=== PATIENT | male | born 1975 | race African-American/Black ===

== ENCOUNTER 2022-10-13 09:18 | Outpatient (CLI) | payer MEDICARE, OTHER | END 2022-10-13 09:19 | disposition home or self-care (01) | LOC: CSHWCC 09:18 | PROVIDERS: ATTEND Nurse Practitioner Family | DX: R60.0 Localized edema (principal); S81.802D Unspecified open wound, left lower leg, subsequent encounter; S81.801D Unspecified open wound, right lower leg, subsequent encounter | CPT/HCPCS: 29581; 97597 ==

== ENCOUNTER 2022-10-23 15:13 | Outpatient (CLI) | payer MEDICARE | END 2022-10-23 15:14 | disposition home or self-care (01) | LOC: CSHWCC 15:13 | PROVIDERS: ATTEND Nurse Practitioner Family | DX: S81.802D Unspecified open wound, left lower leg, subsequent encounter (principal); R60.0 Localized edema | CPT/HCPCS: 29581; 97597; 97598 ==

== ENCOUNTER 2022-10-27 11:05 | Outpatient (CLI) | payer MEDICARE | END 2022-10-27 11:06 | disposition home or self-care (01) | LOC: CSHWCC 11:05 | PROVIDERS: ATTEND Nurse Practitioner Family | DX: R60.0 Localized edema (principal); S81.802D Unspecified open wound, left lower leg, subsequent encounter | CPT/HCPCS: 29581; 97597 ==

== ENCOUNTER 2022-10-30 13:24 | Outpatient (CLI) | payer MEDICARE | END 2022-10-30 13:25 | disposition home or self-care (01) | LOC: CSHWCC 13:24 | PROVIDERS: ATTEND Nurse Practitioner Family | DX: R60.0 Localized edema (principal); S81.802D Unspecified open wound, left lower leg, subsequent encounter ==

== ENCOUNTER 2022-11-04 08:09 | Outpatient (CLI) | payer MEDICARE | END 2022-11-04 08:10 | disposition home or self-care (01) | LOC: CSHWCC 08:09 | PROVIDERS: ATTEND Nurse Practitioner Family | DX: R60.0 Localized edema (principal); S81.802D Unspecified open wound, left lower leg, subsequent encounter | CPT/HCPCS: 29581; 97597 ==

== ENCOUNTER 2022-11-07 08:05 | Outpatient (CLI) | payer MEDICARE | END 2022-11-07 08:06 | disposition home or self-care (01) | LOC: CSHWCC 08:05 | PROVIDERS: ATTEND Nurse Practitioner Family | DX: R60.0 Localized edema (principal); S81.802D Unspecified open wound, left lower leg, subsequent encounter; S81.801D Unspecified open wound, right lower leg, subsequent encounter | CPT/HCPCS: 29581 ==

== ENCOUNTER 2022-11-10 09:22 | Outpatient (CLI) | payer MEDICARE | END 2022-11-10 09:23 | disposition home or self-care (01) | LOC: CSHWCC 09:22 | PROVIDERS: ATTEND Nurse Practitioner Family | DX: S81.801D Unspecified open wound, right lower leg, subsequent encounter (principal); S81.802D Unspecified open wound, left lower leg, subsequent encounter; R60.0 Localized edema | CPT/HCPCS: 29581 ==

== ENCOUNTER 2022-11-13 10:24 | Outpatient (CLI) | payer MEDICARE | END 2022-11-13 10:25 | disposition home or self-care (01) | LOC: CSHWCC 10:24 | PROVIDERS: ATTEND Nurse Practitioner Family | DX: R60.0 Localized edema (principal); S81.802D Unspecified open wound, left lower leg, subsequent encounter; S81.801D Unspecified open wound, right lower leg, subsequent encounter | CPT/HCPCS: 29581 ==

== ENCOUNTER 2022-11-18 10:32 | Outpatient (CLI) | payer MEDICARE | END 2022-11-18 10:33 | disposition home or self-care (01) | LOC: CSHWCC 10:32 | PROVIDERS: ATTEND Nurse Practitioner Family | DX: R60.0 Localized edema (principal) | CPT/HCPCS: 29581 ==

== ENCOUNTER 2022-11-21 09:00 | Outpatient (CLI) | payer MEDICARE | END 2022-11-21 09:01 | disposition home or self-care (01) | LOC: CSHWCC 09:00 | PROVIDERS: ATTEND Nurse Practitioner Family | DX: R60.0 Localized edema (principal); S81.802D Unspecified open wound, left lower leg, subsequent encounter; S81.801D Unspecified open wound, right lower leg, subsequent encounter | CPT/HCPCS: 11042; 11045; 97597 ==

== ENCOUNTER 2022-11-25 08:12 | Outpatient (CLI) | payer MEDICARE | END 2022-11-25 08:13 | disposition home or self-care (01) | LOC: CSHWCC 08:12 | PROVIDERS: ATTEND Nurse Practitioner Family | DX: S81.802D Unspecified open wound, left lower leg, subsequent encounter (principal); R60.0 Localized edema | CPT/HCPCS: 11042; 11045; 29581 ==

== ENCOUNTER 2022-11-28 11:54 | Outpatient (CLI) | payer MEDICARE | END 2022-11-28 11:55 | disposition home or self-care (01) | LOC: CSHWCC 11:54 | PROVIDERS: ATTEND Nurse Practitioner Family | DX: R60.0 Localized edema (principal); S81.802D Unspecified open wound, left lower leg, subsequent encounter; S81.801D Unspecified open wound, right lower leg, subsequent encounter | CPT/HCPCS: 29581; 97597 ==

== ENCOUNTER 2022-12-02 13:10 | Outpatient (CLI) | payer MEDICARE | END 2022-12-02 13:11 | disposition home or self-care (01) | LOC: CSHWCC 13:10 | PROVIDERS: ATTEND Nurse Practitioner Family | DX: R60.0 Localized edema (principal); S81.802D Unspecified open wound, left lower leg, subsequent encounter; S81.801D Unspecified open wound, right lower leg, subsequent encounter | CPT/HCPCS: 29581 ==

== ENCOUNTER 2022-12-09 09:33 | Outpatient (CLI) | payer MEDICARE | END 2022-12-09 09:34 | disposition home or self-care (01) | LOC: CSHWCC 09:33 | PROVIDERS: ATTEND Nurse Practitioner Family | DX: R60.0 Localized edema (principal); S81.801D Unspecified open wound, right lower leg, subsequent encounter; S81.802D Unspecified open wound, left lower leg, subsequent encounter | CPT/HCPCS: 11042; 11045 ==

== ENCOUNTER 2022-12-12 08:06 | Outpatient (CLI) | payer MEDICARE | END 2022-12-12 08:07 | disposition home or self-care (01) | LOC: CSHWCC 08:06 | PROVIDERS: ATTEND Nurse Practitioner Family | DX: S81.802D Unspecified open wound, left lower leg, subsequent encounter (principal); R60.0 Localized edema | CPT/HCPCS: 29581 ==

== ENCOUNTER 2022-12-16 09:36 | Outpatient (CLI) | payer MEDICARE | END 2022-12-16 09:37 | disposition home or self-care (01) | LOC: CSHWCC 09:36 | PROVIDERS: ATTEND Nurse Practitioner Family | DX: S81.802D Unspecified open wound, left lower leg, subsequent encounter (principal); S81.801D Unspecified open wound, right lower leg, subsequent encounter; R60.0 Localized edema | CPT/HCPCS: 29581 ==